=== PATIENT | female | born 1935 | race Native Hawaiian/Other Pacific Islander ===

== ENCOUNTER 2016-07-16 14:21 | Emergency (ER) | payer OTHER ==
[~2016-07-16] VITALS: Ht 167.6 cm; Wt 81.6 kg
[~2016-07-16 14:21] MED LIST: ALPHAGAN P0.1 % OP; ALPR0.2566 PO; AMBIEN5 MG PO; BENICAR40 MG PO; CALTRATE 601 PO; CELEXA20 MG PO; CETI10TA PO; CLONIDINE0.2 MG PO; D32000 UNIT PO; FURO20TA67 PO; HYDR25TA60 PO; HYDRALAZINE25 MG PO; LEVO0.1T6 PO; LIPITOR80 MG PO; POT CHLORIDE10 MEQ PO; SOTALOL AF80 MG PO; TELMISARTAN80 MG PO; XARELTO20 MG PO; [UNRECOGNIZED DRUG - OTHER] PO
[2016-07-16] MEDS ORDERED: PANT40TA PO (14:39)
[2016-07-16 15:38] VITALS: BP 180/90; TEMP 98
== END 2016-07-16 15:39 | disposition home or self-care (01) ==
LOC: ED 14:21
DX: S00.03XA Contusion of scalp, initial encounter (principal); W18.09XA Striking against other object with subsequent fall, initial encounter; Y92.238 Other place in hospital as the place of occurrence of the external cause
CPT/HCPCS: 99283

== ENCOUNTER 2016-08-25 12:14 | Outpatient (CLI) | payer OTHER ==
[~2016-08-25 12:14] MED LIST changes: +PANT40TA PO
== END 2016-08-25 13:14 | disposition home or self-care (01) ==
LOC: RAD 12:14
DX: R06.02 Shortness of breath (principal)

== ENCOUNTER 2016-11-29 08:58 | Outpatient (CLI) | payer OTHER | END 2016-11-29 10:00 | disposition home or self-care (01) | LOC: LABW 08:58 | PROVIDERS: Internal Medicine Cardiovascular Disease | DX: E78.4 Other hyperlipidemia (principal); Z09 Encounter for follow-up examination after completed treatment for conditions other than malignant neoplasm | CPT/HCPCS: 36415; 80061; 80076 ==

== ENCOUNTER 2017-02-02 15:20 | Outpatient (CLI) | payer OTHER | END 2017-02-02 16:20 | disposition home or self-care (01) | LOC: RAD 15:20 | DX: R06.09 Other forms of dyspnea (principal) ==

== ENCOUNTER 2017-02-25 23:07 | Emergency (ER) | payer OTHER ==
[~2017-02-25] VITALS: Ht 167.6 cm; Wt 77.1 kg
[2017-02-26 00:25] LABS: PLATELET COUNT 279 K/uL (152-353)
[2017-02-26 00:36] LABS: POTASSIUM 2.9 mmol/L (3.6-5.2)
[2017-02-26 01:50] VITALS: BP 128/67; TEMP 98.3
[2017-02-27] MEDS ORDERED: LABETALOL100 MG PO (16:12)
== END 2017-02-26 02:05 | disposition home or self-care (01) ==
LOC: ED 23:07
DX: I10 Essential (primary) hypertension (principal); E87.6 Hypokalemia; E87.1 Hypo-osmolality and hyponatremia; R80.8 Other proteinuria; I51.7 Cardiomegaly
CPT/HCPCS: 36415; 80053; 81000; 82550; 82553; 84443; 84484; 85027; 93005; 96374; 96375; 99284; J2405; J3490

== ENCOUNTER 2017-02-27 15:59 | Emergency (ER) | payer OTHER ==
[~2017-02-27] VITALS: Ht 167.6 cm; Wt 77.1 kg
[2017-02-27 16:00] VITALS: TEMP 98
[2017-02-27] MEDS ORDERED: LABETALOL100 MG PO (16:12)
[2017-02-27 17:20] LABS: POTASSIUM 3.4 mmol/L (3.6-5.2)
[2017-02-27 22:22] VITALS: BP 137/71
== END 2017-02-27 22:24 | disposition home or self-care (01) ==
LOC: ED 15:59
DX: I10 Essential (primary) hypertension (principal); E87.6 Hypokalemia; E87.1 Hypo-osmolality and hyponatremia
CPT/HCPCS: 36415; 80048; 83880; 93005; 96374; 96375; 96376; 99284; J0360; J2405; J3490

== ENCOUNTER 2017-05-27 08:29 | Outpatient (CLI) | payer OTHER ==
[~2017-05-27 08:29] MED LIST changes: +LABETALOL100 MG PO
== END 2017-05-27 19:22 | disposition home or self-care (01) ==
LOC: LABW 08:29
PROVIDERS: Internal Medicine Cardiovascular Disease
DX: E78.4 Other hyperlipidemia (principal)
CPT/HCPCS: 36415; 80061; 80076

== ENCOUNTER 2017-07-21 15:48 | Outpatient (CLI) | payer OTHER ==
[2017-07-21 16:04] LABS: PLATELET COUNT 258 K/uL (152-353)
[2017-07-21 16:16] LABS: POTASSIUM 3.9 mmol/L (3.6-5.2); SODIUM 135 mmol/L (136-145)
== END 2017-07-21 22:07 | disposition home or self-care (01) ==
LOC: LABW 15:48
PROVIDERS: Obstetrics & Gynecology Gynecologic Oncology
DX: D39.11 Neoplasm of uncertain behavior of right ovary (principal)
CPT/HCPCS: 36415; 80048; 85027

== ENCOUNTER 2017-10-11 08:13 | Outpatient (CLI) | payer OTHER | END 2017-10-11 22:52 | disposition home or self-care (01) | LOC: LABW 08:13 | PROVIDERS: Internal Medicine Cardiovascular Disease | DX: E78.4 Other hyperlipidemia (principal) | CPT/HCPCS: 36415; 80061; 80076 ==

== ENCOUNTER 2018-05-01 08:44 | Outpatient (CLI) | payer OTHER | END 2018-05-01 19:51 | disposition home or self-care (01) | LOC: LABW 08:44 | PROVIDERS: Internal Medicine Cardiovascular Disease | DX: E78.5 Hyperlipidemia, unspecified (principal); Z09 Encounter for follow-up examination after completed treatment for conditions other than malignant neoplasm | CPT/HCPCS: 36415; 80061; 80076 ==

== ENCOUNTER 2018-10-31 08:58 | Outpatient (CLI) | payer OTHER | END 2018-10-31 20:14 | disposition home or self-care (01) | LOC: LABW 08:58 | PROVIDERS: Internal Medicine Cardiovascular Disease | DX: Z09 Encounter for follow-up examination after completed treatment for conditions other than malignant neoplasm (principal); E78.49 Other hyperlipidemia | CPT/HCPCS: 36415; 80061; 80076 ==

== ENCOUNTER 2019-06-05 08:52 | Outpatient (CLI) | payer OTHER | END 2019-06-05 19:35 | disposition home or self-care (01) | LOC: LABW 08:52 | PROVIDERS: Internal Medicine Cardiovascular Disease | DX: E78.00 Pure hypercholesterolemia, unspecified (principal); Z79.899 Other long term (current) drug therapy | CPT/HCPCS: 36415; 80061; 80076 ==

== ENCOUNTER 2020-08-28 15:33 | Outpatient (CLI) | payer OTHER | END 2020-08-28 23:15 | disposition home or self-care (01) | LOC: RAD 15:33 | PROVIDERS: ATTEND Physician Assistant | DX: M25.562 Pain in left knee (principal) ==

== ENCOUNTER 2021-03-13 08:17 | Outpatient (CLI) | payer OTHER ==
[2021-03-13 08:47] LABS: POTASSIUM 3.7 mmol/L (3.6-5.2)
== END 2021-03-13 19:03 | disposition home or self-care (01) ==
LOC: LABW 08:17
PROVIDERS: ATTEND Physician Assistant Medical
DX: I10 Essential (primary) hypertension (principal); Z09 Encounter for follow-up examination after completed treatment for conditions other than malignant neoplasm
CPT/HCPCS: 36415; 80048

== ENCOUNTER 2021-08-05 09:15 | Outpatient (CLI) | payer OTHER | END 2021-08-05 18:46 | disposition home or self-care (01) | LOC: LABW 09:15 | PROVIDERS: ATTEND Internal Medicine Cardiovascular Disease | DX: E78.49 Other hyperlipidemia (principal); Z09 Encounter for follow-up examination after completed treatment for conditions other than malignant neoplasm | CPT/HCPCS: 36415; 80061; 80076 ==

== ENCOUNTER 2021-09-22 14:14 | Outpatient (CLI) | payer OTHER | END 2021-09-22 19:05 | disposition home or self-care (01) | LOC: LAB 14:14 | PROVIDERS: ATTEND Nurse Practitioner | DX: R10.84 Generalized abdominal pain (principal) | CPT/HCPCS: 82272; 83630; 87015; 87045; 87324; 87328; 87329; 87449; 87899 ==

== ENCOUNTER 2022-02-05 08:59 | Outpatient (CLI) | payer OTHER | END 2022-02-05 21:35 | disposition home or self-care (01) | LOC: LABW 08:59 | PROVIDERS: ATTEND Internal Medicine Cardiovascular Disease | DX: E78.00 Pure hypercholesterolemia, unspecified (principal) | CPT/HCPCS: 36415; 80061; 80076 ==

== ENCOUNTER 2022-08-10 09:11 | Outpatient (CLI) | payer OTHER | END 2022-08-10 19:19 | disposition home or self-care (01) | LOC: LABW 09:11 | PROVIDERS: ATTEND Internal Medicine Cardiovascular Disease | DX: E78.00 Pure hypercholesterolemia, unspecified (principal) | CPT/HCPCS: 36415; 80061; 80076 ==

== ENCOUNTER 2023-02-02 07:43 | Outpatient (CLI) | payer OTHER | END 2023-02-02 20:59 | disposition home or self-care (01) | LOC: LABW 07:43 | PROVIDERS: ATTEND Internal Medicine Cardiovascular Disease | DX: E78.00 Pure hypercholesterolemia, unspecified (principal) | CPT/HCPCS: 36415; 80061; 80076 ==

== ENCOUNTER 2023-08-30 08:09 | Outpatient (CLI) | payer OTHER | END 2023-08-30 19:20 | disposition home or self-care (01) | LOC: LABW 08:09 | PROVIDERS: ATTEND Internal Medicine Cardiovascular Disease | DX: E78.00 Pure hypercholesterolemia, unspecified (principal) | CPT/HCPCS: 36415; 80061; 80076 ==